=== PATIENT | female | born 1985 | race Caucasian/White ===

== ENCOUNTER 2021-12-15 04:07 | Emergency (ER) | payer SELFPAY ==
[2021-12-15 04:21] VITALS: BP 106/72; PULSE 70; RESP 16; TEMP 97.5; BMI 24.0
== END 2021-12-15 06:54 | disposition home or self-care (01) ==
LOC: JER 04:07
DX: R10.84 Generalized abdominal pain (principal)
CPT/HCPCS: 99283-25

== ENCOUNTER 2021-12-15 12:49 | Emergency (ER) | payer OTHER ==
[2021-12-15 13:01] VITALS: BP 99/56; PULSE 65; RESP 16; TEMP 97.6; BMI 24.9
[2021-12-15] MEDS ORDERED: ACETAMINOPHEN 325 MG TABLET (FP) PO ONE (13:37)
[2021-12-15] MEDS ORDERED: ACETAMINOPHEN 325 MG TABLET (FP) ONE (13:47)
== END 2021-12-15 13:51 | disposition home or self-care (01) ==
LOC: JERFT 12:49
DX: M54.89 Other dorsalgia (principal)
CPT/HCPCS: 99283-25

== ENCOUNTER 2021-12-16 21:38 | Emergency (ER) | payer OTHER ==
[2021-12-16] MEDS ORDERED: SODIUM CHLORIDE 0.9% 500 ML INFUS.BAG IV ONE (21:43)
[2021-12-16 21:53] VITALS: BMI 24.8
[2021-12-16 22:45] LABS: HEMATOCRIT 33.6 % (32.4-45.2); MCHC 35.6 g/dl (32.0-36.0); MEAN CELL VOLUME 89.9 fl (80-96); MEAN PLT VOLUME 7.6 fl (7.5-11.1); PLATELET COUNT 325.2 10^3/uL (134-434); RBC 3.74 10^6/uL (3.60-5.2); RDW 14.2 % (11.6-15.6); WHITE BLOOD COUNT 9.4 10^3/uL (4.0-10.8)
[2021-12-16 22:59] LABS: ALBUMIN 3.9 g/dl (3.4-5.0); BILIRUBIN,TOTAL 0.6 mg/dl (0.2-1); CALCIUM 9.1 mg/dl (8.5-10); CREATININE 0.7 mg/dl (0.55-1.3); TOT PROT 6.6 g/dl (6.4-8.2)
[2021-12-16 23:03] LABS: PLATELET ESTIMATE ADEQUATE
[2021-12-17 06:24] VITALS: BP 92/65; PULSE 65; RESP 14; TEMP 97.8
== END 2021-12-17 06:30 | disposition home or self-care (01) ==
LOC: FER 21:38
DX: E86.0 Dehydration (principal)
CPT/HCPCS: 36415; 80053; 84703; 85025; 99283-25

== ENCOUNTER 2022-01-02 22:52 | Emergency (ER) | payer OTHER ==
[2022-01-02 23:05] VITALS: BP 106/75; PULSE 92; RESP 18; TEMP 97.9; BMI 27.4
[2022-01-03] MEDS ORDERED: KETOROLAC TROMETHAMINE 30 MG/1 ML VIAL IM ONE (00:55)
[2022-01-03] MEDS ORDERED: KETOROLAC TROMETHAMINE 30 MG/1 ML VIAL ONE (01:04)
[2022-01-03] MEDS ORDERED: ACETAMINOPHEN 500 MG TABLET (FP) PO ONE (05:58)
[2022-01-03] MEDS ORDERED: ACETAMINOPHEN 325 MG TABLET (FP) ONE (06:00)
== END 2022-01-03 06:50 | disposition short-term general hospital (02) ==
LOC: JER 22:52
PROC: 3E0233Z Introduction of Anti-inflammatory into Muscle, Percutaneous Approach (ICD-10-PCS; principal; 2022-01-02)
DX: R22.42 Localized swelling, mass and lump, left lower limb (principal)
CPT/HCPCS: 93971-TC; 99285-25

== ENCOUNTER 2022-01-15 19:21 | Inpatient (IN) | payer OTHER ==
[2022-01-15 19:43] VITALS: BMI 26.4
[2022-01-15] MEDS ORDERED: IBUPROFEN 400 MG TABLET (FP) PO PRN (22:17)
[2022-01-15] MEDS ORDERED: guaiFENesin 200 MG/10 ML 10 ML UNIT-DOSE CUPS PO PRN (22:17)
[2022-01-15] MEDS ORDERED: NICOTINE 10 MG CARTRIDGE (INHALER) IH PRN (22:17)
[2022-01-15] MEDS ORDERED: LOPERAMIDE HCL 2 MG CAPSULE PO PRN (22:17)
[2022-01-15] MEDS ORDERED: NALOXONE HCL (KLOXXADO) 8 MG SPRAY NS PRN (22:17)
[2022-01-15] MEDS ORDERED: NALOXONE HCL 0.4 MG/ML VIAL IM PRN (22:17)
[2022-01-15] MEDS ORDERED: P-EPHED 60MG/TRIPROLIDI 2.5MG TABLET PO PRN (22:17)
[2022-01-15] MEDS ORDERED: MAG HYDROX/AL HYDROX/SIMETH 30 ML UNIT-DOSE CUP PO PRN (22:17)
[2022-01-15] MEDS ORDERED: MELATONIN 5 MG TABLETS PO PRN (22:17)
[2022-01-15] MEDS ORDERED: BENZOCAINE/MENTHOL (CHLORASEPTIC ) LOZENGE MM PRN (22:17)
[2022-01-15] MEDS ORDERED: MAGNESIUM CITRATE 300 ML BOTTLE PO PRN (22:17)
[2022-01-15] MEDS ORDERED: MAGNESIUM HYDROX 2400MG/30ML ORAL SUSPENSION 30 ML CUP PO PRN (22:17)
[2022-01-15] MEDS ORDERED: BISMUTH SUBSALICYLATE 524 MG/30 ML PO PRN (22:17)
[2022-01-15] MEDS ORDERED: ACETAMINOPHEN 325 MG TABLET (FP) PO PRN (22:17)
[2022-01-15] MEDS ORDERED: NICOTINE POLACRILEX 2 MG GUM BUC PRN (22:17)
[2022-01-15] MEDS ORDERED: methaDONE HCL 10 MG TABLET (FOR DETOX USE ONLY) PO ONE (22:19)
[2022-01-16] MEDS: hydrOXYzine PAMOATE 25 MG CAPSULE (FP) PO PRN ×4 (05:32→23:12)
[2022-01-16] MEDS: ACETAMINOPHEN 325 MG TABLET (FP) PO PRN ×3 (05:32→23:31)
[2022-01-16] MEDS: METHOCARBAMOL 500 MG TABLET PO PRN ×2 (10:27→18:08)
[2022-01-16] MEDS: PRENATAL VITAMINS W/ FOLIC ACID TABLET (FP) PO SCH (10:27)
[2022-01-16] MEDS: DICYCLOMINE HCL 10 MG CAPSULE PO PRN (10:31)
[2022-01-16] MEDS: ONDANSETRON *ODT* 4 MG TABLET SL PRN ×2 (10:32→18:10)
[2022-01-16] MEDS ORDERED: NICOTINE 10 MG CARTRIDGE (INHALER) IH PRN (13:41)
[2022-01-16] MEDS: GABAPENTIN 300 MG CAPSULE PO SCH ×2 (13:51→22:12)
[2022-01-16] MEDS: IBUPROFEN 600 MG TABLET (FP) PO PRN (13:51)
[2022-01-16] MEDS: cloNIDine HCL 0.1 MG TABLET PO PRN (14:52)
[2022-01-16] MEDS: NICOTINE 7 MG/24 HOURS TOPICAL PATCH TD SCH (15:32)
[2022-01-16 17:29] LABS: HEMATOCRIT 30.6 % (32.4-45.2); HEMOGLOBIN 10.5 GM/dL (10.7-15.3); MCH 30.9 pg (25.7-33.7); MCHC 34.1 g/dl (32.0-36.0); MEAN CELL VOLUME 90.5 fl (80-96); MEAN PLT VOLUME 7.5 fl (7.5-11.1); PLATELET COUNT 341 10^3/uL (134-434); RBC 3.39 M/mm3 (3.60-5.2); RDW 15.1 % (11.6-15.6); WHITE BLOOD COUNT 8.3 K/mm3 (4.0-10.0)
[2022-01-16 17:33] LABS: CALCIUM 8.7 mg/dL (8.5-10.1)
[2022-01-16 17:34] LABS: ALBUMIN 3.4 g/dl (3.4-5.0)
[2022-01-16 17:37] LABS: CREATININE 0.8 mg/dL (0.55-1.3)
[2022-01-16 17:38] LABS: BILIRUBIN,TOTAL 0.2 mg/dL (0.2-1); TOT PROT 6.3 g/dl (6.4-8.2)
[2022-01-16 19:33] LABS: HIV INTERPRETATION NEGATIVE (NEGATIVE)
[2022-01-16] MEDS ORDERED: THIAMINE HCL 100 MG TABLET (FP) PO SCH (22:00)
[2022-01-17] MEDS: cloNIDine HCL 0.1 MG TABLET PO PRN (06:00)
[2022-01-17] MEDS: GABAPENTIN 300 MG CAPSULE PO SCH ×2 (06:00→13:35)
[2022-01-17] MEDS: ONDANSETRON *ODT* 4 MG TABLET SL PRN ×2 (06:01→13:50)
[2022-01-17] MEDS: METHOCARBAMOL 500 MG TABLET PO PRN (06:01)
[2022-01-17] MEDS: hydrOXYzine PAMOATE 25 MG CAPSULE (FP) PO PRN (06:02)
[2022-01-17] MEDS ORDERED: diazePAM 5 MG TABLET PO ONE (07:36)
[2022-01-17 09:51] VITALS: RESP 16; TEMP 97.3
[2022-01-17] MEDS ORDERED: methaDONE HCL 10 MG TABLET (FOR DETOX USE ONLY) PO ONE (10:00)
[2022-01-17] MEDS: PRENATAL VITAMINS W/ FOLIC ACID TABLET (FP) PO SCH (10:29)
[2022-01-17] MEDS: NICOTINE 7 MG/24 HOURS TOPICAL PATCH TD SCH (10:29)
[2022-01-17] MEDS: IBUPROFEN 600 MG TABLET (FP) PO PRN (10:32)
[2022-01-17 13:14] VITALS: BP 104/62; PULSE 66
[2022-01-17] MEDS: ACETAMINOPHEN 325 MG TABLET (FP) PO PRN (13:35)
[2022-01-17] MEDS: DICYCLOMINE HCL 10 MG CAPSULE PO PRN (13:50)
== END 2022-01-17 15:05 | disposition home or self-care (01) | DRG 773 ==
LOC: YASAS 19:21 → Y6N 23:10
PROVIDERS: ADMIT Allergy & Immunology; ATTEND Surgery
PROC: HZ2ZZZZ Detoxification Services for Substance Abuse Treatment (ICD-10-PCS; principal; 2022-01-15)
DX: F11.23 Opioid dependence with withdrawal (principal); F17.210 Nicotine dependence, cigarettes, uncomplicated; F19.282 Other psychoactive substance dependence with psychoactive substance-induced sleep disorder; F19.280 Other psychoactive substance dependence with psychoactive substance-induced anxiety disorder; F19.24 Other psychoactive substance dependence with psychoactive substance-induced mood disorder; F31.9 Bipolar disorder, unspecified; F43.10 Post-traumatic stress disorder, unspecified; F90.9 Attention-deficit hyperactivity disorder, unspecified type; Z62.810 Personal history of physical and sexual abuse in childhood; Z91.410 Personal history of adult physical and sexual abuse; Z56.0 Unemployment, unspecified; Z59.00 Homelessness unspecified
CPT/HCPCS: 36415; 80053; 81025; 85027; 86780; 87389; Q0162

== ENCOUNTER 2022-01-26 21:14 | Inpatient (IN) | payer OTHER ==
[2022-01-26 22:57] VITALS: BMI 28.8
[2022-01-26] MEDS ORDERED: MAGNESIUM CITRATE 300 ML BOTTLE PO PRN (23:03)
[2022-01-26] MEDS ORDERED: P-EPHED 60MG/TRIPROLIDI 2.5MG TABLET PO PRN (23:03)
[2022-01-26] MEDS ORDERED: DICYCLOMINE HCL 10 MG CAPSULE PO PRN (23:03)
[2022-01-26] MEDS ORDERED: ACETAMINOPHEN 325 MG TABLET (FP) PO PRN (23:03)
[2022-01-26] MEDS ORDERED: BISMUTH SUBSALICYLATE 524 MG/30 ML PO PRN (23:03)
[2022-01-26] MEDS ORDERED: IBUPROFEN 600 MG TABLET (FP) PO PRN (23:03)
[2022-01-26] MEDS ORDERED: guaiFENesin 200 MG/10 ML 10 ML UNIT-DOSE CUPS PO PRN (23:03)
[2022-01-26] MEDS ORDERED: NALOXONE HCL (KLOXXADO) 8 MG SPRAY NS PRN (23:03)
[2022-01-26] MEDS ORDERED: IBUPROFEN 400 MG TABLET (FP) PO PRN (23:03)
[2022-01-26] MEDS ORDERED: MAGNESIUM HYDROX 2400MG/30ML ORAL SUSPENSION 30 ML CUP PO PRN (23:03)
[2022-01-26] MEDS ORDERED: NICOTINE POLACRILEX 2 MG GUM BUC PRN (23:03)
[2022-01-26] MEDS ORDERED: BENZOCAINE/MENTHOL (CHLORASEPTIC ) LOZENGE MM PRN (23:03)
[2022-01-26] MEDS: ONDANSETRON *ODT* 4 MG TABLET SL PRN (23:55)
[2022-01-27] MEDS: LOPERAMIDE HCL 2 MG CAPSULE PO PRN ×2 (07:38→15:18)
[2022-01-27] MEDS: METHOCARBAMOL 500 MG TABLET PO PRN ×2 (08:50→15:18)
[2022-01-27] MEDS: MAG HYDROX/AL HYDROX/SIMETH 30 ML UNIT-DOSE CUP PO PRN ×2 (08:50→22:12)
[2022-01-27] MEDS: NICOTINE 14 MG/24 HOURS TOPICAL PATCH TD SCH (10:06)
[2022-01-27] MEDS: methaDONE 40 MG, methaDONE 10 MG PO SCH (10:06)
[2022-01-27] MEDS: PRENATAL VITAMINS W/ FOLIC ACID TABLET (FP) PO SCH (10:06)
[2022-01-27] MEDS: GABAPENTIN 300 MG CAPSULE PO SCH ×2 (13:16→22:11)
[2022-01-27] MEDS: hydrOXYzine PAMOATE 25 MG CAPSULE (FP) PO PRN (15:18)
[2022-01-27] MEDS: ONDANSETRON *ODT* 4 MG TABLET SL PRN (17:57)
[2022-01-27] MEDS: ACETAMINOPHEN 325 MG TABLET (FP) PO PRN (17:57)
[2022-01-27 18:27] VITALS: RESP 18
[2022-01-27] MEDS ORDERED: MELATONIN 5 MG TABLETS PO SCH (22:00)
[2022-01-27] MEDS ORDERED: THIAMINE HCL 100 MG TABLET (FP) PO SCH (22:00)
[2022-01-28] MEDS: hydrOXYzine PAMOATE 25 MG CAPSULE (FP) PO PRN ×2 (01:06→13:05)
[2022-01-28] MEDS: ACETAMINOPHEN 325 MG TABLET (FP) PO PRN ×2 (01:06→10:30)
[2022-01-28] MEDS: GABAPENTIN 300 MG CAPSULE PO SCH ×2 (06:04→13:05)
[2022-01-28] MEDS: methaDONE 40 MG, methaDONE 10 MG PO SCH (06:04)
[2022-01-28 09:11] VITALS: TEMP 97.5
[2022-01-28 10:30] LABS: HEMATOCRIT 36.3 % (32.4-45.2); MCH 29.5 pg (25.7-33.7); MCHC 33.1 g/dl (32.0-36.0); MEAN CELL VOLUME 89.1 fl (80-96); MEAN PLT VOLUME 7.7 fl (7.5-11.1); PLATELET COUNT 288 10^3/uL (134-434); RBC 4.08 M/mm3 (3.60-5.2); RDW 14.3 % (11.6-15.6); WHITE BLOOD COUNT 6.8 K/mm3 (4.0-10.0)
[2022-01-28] MEDS: PRENATAL VITAMINS W/ FOLIC ACID TABLET (FP) PO SCH (10:30)
[2022-01-28] MEDS: NICOTINE 14 MG/24 HOURS TOPICAL PATCH TD SCH (10:30)
[2022-01-28] MEDS: MAG HYDROX/AL HYDROX/SIMETH 30 ML UNIT-DOSE CUP PO PRN (10:31)
[2022-01-28 10:42] LABS: ALBUMIN 3.8 g/dl (3.4-5.0); BLOOD UREA NITROGEN 17.8 mg/dL (7-18); CALCIUM 9.5 mg/dL (8.5-10.1)
[2022-01-28 10:45] LABS: CREATININE 0.9 mg/dL (0.55-1.3)
[2022-01-28 10:47] LABS: BILIRUBIN,TOTAL 0.3 mg/dL (0.2-1); TOT PROT 6.9 g/dl (6.4-8.2)
[2022-01-28 12:47] VITALS: BP 107/61; PULSE 54
[2022-01-28] MEDS: METHOCARBAMOL 500 MG TABLET PO PRN (13:04)
[2022-01-28 13:47] LABS: HIV INTERPRETATION NEGATIVE (NEGATIVE)
== END 2022-01-28 13:35 | disposition other institution (70) | DRG 773 ==
LOC: YASAS 21:14 → Y3N 23:20
PROVIDERS: ADMIT Allergy & Immunology; ATTEND Surgery
PROC: HZ2ZZZZ Detoxification Services for Substance Abuse Treatment (ICD-10-PCS; principal; 2022-01-26)
DX: F11.23 Opioid dependence with withdrawal (principal); F16.20 Hallucinogen dependence, uncomplicated; F13.10 Sedative, hypnotic or anxiolytic abuse, uncomplicated; F12.20 Cannabis dependence, uncomplicated; F17.210 Nicotine dependence, cigarettes, uncomplicated; F19.24 Other psychoactive substance dependence with psychoactive substance-induced mood disorder; F41.9 Anxiety disorder, unspecified; Z62.810 Personal history of physical and sexual abuse in childhood; Z91.410 Personal history of adult physical and sexual abuse; Z86.59 Personal history of other mental and behavioral disorders; Z28.310 Unvaccinated for COVID-19; Z28.9 Immunization not carried out for unspecified reason; Z56.0 Unemployment, unspecified; Z59.00 Homelessness unspecified
CPT/HCPCS: 36415; 80053; 84703; 85027; 86780; 87389; 87811; C9803-CS; Q0162; U0003; U0005

== ENCOUNTER 2022-01-28 13:48 | Inpatient (IN) | payer OTHER ==
[2022-01-28] MEDS ORDERED: P-EPHED 60MG/TRIPROLIDI 2.5MG TABLET PO PRN (13:49)
[2022-01-28] MEDS ORDERED: guaiFENesin 200 MG/10 ML 10 ML UNIT-DOSE CUPS PO PRN (13:49)
[2022-01-28] MEDS ORDERED: MAGNESIUM CITRATE 300 ML BOTTLE PO PRN (13:49)
[2022-01-28] MEDS ORDERED: MAGNESIUM HYDROX 2400MG/30ML ORAL SUSPENSION 30 ML CUP PO PRN (13:49)
[2022-01-28] MEDS ORDERED: LOPERAMIDE HCL 2 MG CAPSULE PO PRN (13:49)
[2022-01-28] MEDS ORDERED: BENZOCAINE/MENTHOL (CHLORASEPTIC ) LOZENGE MM PRN (13:49)
[2022-01-28] MEDS: GABAPENTIN 300 MG CAPSULE PO SCH ×2 (16:03→21:05)
[2022-01-28] MEDS: NICOTINE 10 MG CARTRIDGE (INHALER) IH SCH (17:27)
[2022-01-28] MEDS: THIAMINE HCL 100 MG TABLET (FP) PO SCH (21:05)
[2022-01-28] MEDS: MELATONIN 5 MG TABLETS PO SCH (21:05)
[2022-01-28] MEDS: hydrOXYzine PAMOATE 25 MG CAPSULE (FP) PO PRN (21:06)
[2022-01-29] MEDS: ACETAMINOPHEN 325 MG TABLET (FP) PO PRN ×2 (00:57→19:41)
[2022-01-29] MEDS: GABAPENTIN 300 MG CAPSULE PO SCH ×3 (06:42→21:20)
[2022-01-29] MEDS: methaDONE 40 MG, methaDONE 10 MG PO SCH (06:42)
[2022-01-29] MEDS: MAG HYDROX/AL HYDROX/SIMETH 30 ML UNIT-DOSE CUP PO PRN ×2 (06:42→21:24)
[2022-01-29] MEDS ORDERED: ONDANSETRON *ODT* 4 MG TABLET SL PRN ×2 (10:36→10:39)
[2022-01-29] MEDS ORDERED: LIDOCAINE VISCOUS 2% ORAL/TOP 100 ML BOTTLE MM PRN (10:41)
[2022-01-29] MEDS: NICOTINE 14 MG/24 HOURS TOPICAL PATCH TD SCH (10:56)
[2022-01-29] MEDS: PRENATAL VITAMINS W/ FOLIC ACID TABLET (FP) PO SCH (10:56)
[2022-01-29] MEDS: NICOTINE 10 MG CARTRIDGE (INHALER) IH SCH (10:56)
[2022-01-29] MEDS ORDERED: LIDOCAINE VISCOUS 2% ORAL/TOP 15 ML UNIT-DOSE CUP MM PRN (11:06)
[2022-01-29] MEDS: AMOXICILLIN 500 MG CAPSULE (FP) PO SCH ×2 (11:12→21:20)
[2022-01-29] MEDS: cloNIDine HCL 0.1 MG TABLET PO PRN ×2 (11:12→19:41)
[2022-01-29] MEDS: IBUPROFEN 400 MG TABLET (FP) PO PRN (13:02)
[2022-01-29] MEDS: hydrOXYzine PAMOATE 25 MG CAPSULE (FP) PO PRN ×2 (15:53→21:20)
[2022-01-29] MEDS: THIAMINE HCL 100 MG TABLET (FP) PO SCH (21:20)
[2022-01-29] MEDS: MELATONIN 5 MG TABLETS PO SCH (21:20)
[2022-01-30] MEDS: methaDONE 40 MG, methaDONE 10 MG PO SCH (06:25)
[2022-01-30] MEDS: GABAPENTIN 300 MG CAPSULE PO SCH ×3 (06:25→21:08)
[2022-01-30] MEDS: PRENATAL VITAMINS W/ FOLIC ACID TABLET (FP) PO SCH (10:35)
[2022-01-30] MEDS: NICOTINE 10 MG CARTRIDGE (INHALER) IH SCH (10:35)
[2022-01-30] MEDS: NICOTINE 14 MG/24 HOURS TOPICAL PATCH TD SCH (10:35)
[2022-01-30] MEDS: AMOXICILLIN 500 MG CAPSULE (FP) PO SCH ×2 (10:36→21:08)
[2022-01-30] MEDS: hydrOXYzine PAMOATE 25 MG CAPSULE (FP) PO PRN (10:36)
[2022-01-30] MEDS: IBUPROFEN 400 MG TABLET (FP) PO PRN (13:18)
[2022-01-30] MEDS: cloNIDine HCL 0.1 MG TABLET PO PRN (21:08)
[2022-01-30] MEDS: THIAMINE HCL 100 MG TABLET (FP) PO SCH (21:08)
[2022-01-30] MEDS: MELATONIN 5 MG TABLETS PO SCH (21:09)
[2022-01-31] MEDS: GABAPENTIN 300 MG CAPSULE PO SCH ×3 (06:41→21:13)
[2022-01-31] MEDS: methaDONE 40 MG, methaDONE 10 MG PO SCH (06:41)
[2022-01-31] MEDS: AMOXICILLIN 500 MG CAPSULE (FP) PO SCH ×2 (10:05→21:13)
[2022-01-31] MEDS: NICOTINE 10 MG CARTRIDGE (INHALER) IH SCH (10:06)
[2022-01-31] MEDS: NICOTINE 14 MG/24 HOURS TOPICAL PATCH TD SCH (10:06)
[2022-01-31] MEDS: hydrOXYzine PAMOATE 25 MG CAPSULE (FP) PO PRN ×2 (10:07→20:03)
[2022-01-31] MEDS: PRENATAL VITAMINS W/ FOLIC ACID TABLET (FP) PO SCH (10:09)
[2022-01-31] MEDS ORDERED: SODIUM POLYSTYRENE SULFONATE 15 GM/60 ML BOTTLE PO ONE (14:30)
[2022-01-31] MEDS: IBUPROFEN 400 MG TABLET (FP) PO PRN (20:03)
[2022-01-31] MEDS: THIAMINE HCL 100 MG TABLET (FP) PO SCH (21:13)
[2022-01-31] MEDS: MELATONIN 5 MG TABLETS PO SCH (21:13)
[2022-02-01] MEDS: GABAPENTIN 300 MG CAPSULE PO SCH ×3 (06:30→21:53)
[2022-02-01] MEDS: methaDONE 40 MG, methaDONE 10 MG PO SCH (06:30)
[2022-02-01] MEDS: AMOXICILLIN 500 MG CAPSULE (FP) PO SCH ×2 (10:52→21:53)
[2022-02-01] MEDS: PRENATAL VITAMINS W/ FOLIC ACID TABLET (FP) PO SCH (10:52)
[2022-02-01] MEDS: hydrOXYzine PAMOATE 25 MG CAPSULE (FP) PO PRN (10:54)
[2022-02-01] MEDS: cloNIDine HCL 0.1 MG TABLET PO PRN (10:56)
[2022-02-01] MEDS: NICOTINE 10 MG CARTRIDGE (INHALER) IH SCH (10:57)
[2022-02-01] MEDS: THIAMINE HCL 100 MG TABLET (FP) PO SCH (21:53)
[2022-02-01] MEDS: MELATONIN 5 MG TABLETS PO SCH (21:53)
[2022-02-01] MEDS: busPIRone HCL 10 MG TABLET (FP) PO SCH (21:54)
[2022-02-02] MEDS: busPIRone HCL 10 MG TABLET (FP) PO SCH ×3 (07:05→21:59)
[2022-02-02] MEDS: methaDONE 40 MG, methaDONE 10 MG PO SCH (07:05)
[2022-02-02] MEDS: GABAPENTIN 300 MG CAPSULE PO SCH ×3 (07:05→21:59)
[2022-02-02] MEDS: PRENATAL VITAMINS W/ FOLIC ACID TABLET (FP) PO SCH (10:32)
[2022-02-02] MEDS: AMOXICILLIN 500 MG CAPSULE (FP) PO SCH ×2 (10:32→21:59)
[2022-02-02] MEDS: NICOTINE 10 MG CARTRIDGE (INHALER) IH SCH (10:33)
[2022-02-02] MEDS: IBUPROFEN 400 MG TABLET (FP) PO PRN (10:34)
[2022-02-02] MEDS: MELATONIN 5 MG TABLETS PO SCH (21:59)
[2022-02-02] MEDS: hydrOXYzine PAMOATE 25 MG CAPSULE (FP) PO PRN (21:59)
[2022-02-02] MEDS: THIAMINE HCL 100 MG TABLET (FP) PO SCH (21:59)
[2022-02-03] MEDS: busPIRone HCL 10 MG TABLET (FP) PO SCH ×3 (06:58→22:36)
[2022-02-03] MEDS: GABAPENTIN 300 MG CAPSULE PO SCH ×3 (06:58→22:14)
[2022-02-03] MEDS: methaDONE 40 MG, methaDONE 10 MG PO SCH (06:58)
[2022-02-03] MEDS: hydrOXYzine PAMOATE 25 MG CAPSULE (FP) PO PRN ×2 (10:37→22:15)
[2022-02-03] MEDS: NICOTINE 10 MG CARTRIDGE (INHALER) IH SCH (10:37)
[2022-02-03] MEDS: PRENATAL VITAMINS W/ FOLIC ACID TABLET (FP) PO SCH (10:37)
[2022-02-03] MEDS: AMOXICILLIN 500 MG CAPSULE (FP) PO SCH ×2 (10:37→22:14)
[2022-02-03] MEDS: IBUPROFEN 400 MG TABLET (FP) PO PRN (16:02)
[2022-02-03] MEDS: MELATONIN 5 MG TABLETS PO SCH (22:14)
[2022-02-03] MEDS: THIAMINE HCL 100 MG TABLET (FP) PO SCH (22:14)
[2022-02-04] MEDS: methaDONE 40 MG, methaDONE 10 MG PO SCH (06:05)
[2022-02-04] MEDS: busPIRone HCL 10 MG TABLET (FP) PO SCH ×3 (06:05→21:16)
[2022-02-04] MEDS: GABAPENTIN 300 MG CAPSULE PO SCH ×3 (06:08→21:16)
[2022-02-04] MEDS: AMOXICILLIN 500 MG CAPSULE (FP) PO SCH ×2 (10:44→21:16)
[2022-02-04] MEDS: PRENATAL VITAMINS W/ FOLIC ACID TABLET (FP) PO SCH (10:44)
[2022-02-04] MEDS: IBUPROFEN 400 MG TABLET (FP) PO PRN (10:45)
[2022-02-04] MEDS: hydrOXYzine PAMOATE 25 MG CAPSULE (FP) PO PRN (10:45)
[2022-02-04] MEDS: NICOTINE 10 MG CARTRIDGE (INHALER) IH SCH (10:46)
[2022-02-04] MEDS: ACETAMINOPHEN 325 MG TABLET (FP) PO PRN (16:34)
[2022-02-04] MEDS: MELATONIN 5 MG TABLETS PO SCH (21:16)
[2022-02-04] MEDS: THIAMINE HCL 100 MG TABLET (FP) PO SCH (21:16)
[2022-02-05] MEDS: busPIRone HCL 10 MG TABLET (FP) PO SCH ×3 (06:16→21:11)
[2022-02-05] MEDS: methaDONE 40 MG, methaDONE 10 MG PO SCH (06:16)
[2022-02-05] MEDS: GABAPENTIN 300 MG CAPSULE PO SCH ×3 (06:16→21:11)
[2022-02-05] MEDS: PRENATAL VITAMINS W/ FOLIC ACID TABLET (FP) PO SCH (10:46)
[2022-02-05] MEDS: AMOXICILLIN 500 MG CAPSULE (FP) PO SCH (10:46)
[2022-02-05] MEDS: NICOTINE 10 MG CARTRIDGE (INHALER) IH SCH (10:46)
[2022-02-05] MEDS: IBUPROFEN 400 MG TABLET (FP) PO PRN ×2 (10:46→21:13)
[2022-02-05] MEDS: hydrOXYzine PAMOATE 25 MG CAPSULE (FP) PO PRN (10:46)
[2022-02-05] MEDS: ACETAMINOPHEN 325 MG TABLET (FP) PO PRN (14:23)
[2022-02-05] MEDS: THIAMINE HCL 100 MG TABLET (FP) PO SCH (21:11)
[2022-02-05] MEDS: MELATONIN 5 MG TABLETS PO SCH (21:11)
[2022-02-06] MEDS: GABAPENTIN 300 MG CAPSULE PO SCH ×3 (06:11→21:09)
[2022-02-06] MEDS: busPIRone HCL 10 MG TABLET (FP) PO SCH ×3 (06:11→21:09)
[2022-02-06] MEDS: methaDONE 40 MG, methaDONE 10 MG PO SCH (06:11)
[2022-02-06] MEDS: hydrOXYzine PAMOATE 25 MG CAPSULE (FP) PO PRN (09:46)
[2022-02-06] MEDS: NICOTINE 10 MG CARTRIDGE (INHALER) IH SCH (09:46)
[2022-02-06] MEDS: PRENATAL VITAMINS W/ FOLIC ACID TABLET (FP) PO SCH (09:46)
[2022-02-06] MEDS: IBUPROFEN 400 MG TABLET (FP) PO PRN ×2 (09:47→21:10)
[2022-02-06] MEDS ORDERED: NICOTINE 10 MG CARTRIDGE (INHALER) IH PRN (14:53)
[2022-02-06 17:21] LABS: ALBUMIN 3.7 g/dl (3.4-5.0); BLOOD UREA NITROGEN 22.2 mg/dL (7-18); CALCIUM 9.6 mg/dL (8.5-10.1)
[2022-02-06 17:24] LABS: CREATININE 0.8 mg/dL (0.55-1.3)
[2022-02-06 17:25] LABS: TOT PROT 6.7 g/dl (6.4-8.2)
[2022-02-06 17:26] LABS: BILIRUBIN,TOTAL 0.3 mg/dL (0.2-1)
[2022-02-06] MEDS: THIAMINE HCL 100 MG TABLET (FP) PO SCH (21:09)
[2022-02-06] MEDS: MELATONIN 5 MG TABLETS PO SCH (21:09)
[2022-02-07] MEDS: methaDONE 40 MG, methaDONE 10 MG PO SCH (06:01)
[2022-02-07] MEDS: GABAPENTIN 300 MG CAPSULE PO SCH ×3 (06:01→21:07)
[2022-02-07] MEDS: busPIRone HCL 10 MG TABLET (FP) PO SCH ×3 (06:01→21:07)
[2022-02-07] MEDS: PRENATAL VITAMINS W/ FOLIC ACID TABLET (FP) PO SCH (09:52)
[2022-02-07] MEDS: IBUPROFEN 400 MG TABLET (FP) PO PRN (09:54)
[2022-02-07] MEDS ORDERED: SODIUM POLYSTYRENE SULFONATE 15 GM/60 ML BOTTLE PO ONE (11:15)
[2022-02-07] MEDS: cloNIDine HCL 0.1 MG TABLET PO PRN (11:17)
[2022-02-07] MEDS: AMOXICILLIN 500 MG CAPSULE (FP) PO SCH ×2 (11:29→21:07)
[2022-02-07] MEDS: THIAMINE HCL 100 MG TABLET (FP) PO SCH (21:07)
[2022-02-07] MEDS: MELATONIN 5 MG TABLETS PO SCH (21:08)
[2022-02-08] MEDS: ACETAMINOPHEN 325 MG TABLET (FP) PO PRN ×2 (01:26→22:02)
[2022-02-08] MEDS: methaDONE 40 MG, methaDONE 10 MG PO SCH (06:52)
[2022-02-08] MEDS: GABAPENTIN 300 MG CAPSULE PO SCH ×3 (06:53→21:23)
[2022-02-08] MEDS: busPIRone HCL 10 MG TABLET (FP) PO SCH ×3 (06:53→21:23)
[2022-02-08] MEDS: AMOXICILLIN 500 MG CAPSULE (FP) PO SCH ×2 (10:44→21:23)
[2022-02-08] MEDS: PRENATAL VITAMINS W/ FOLIC ACID TABLET (FP) PO SCH (10:44)
[2022-02-08] MEDS: IBUPROFEN 400 MG TABLET (FP) PO PRN (10:46)
[2022-02-08] MEDS: hydrOXYzine PAMOATE 25 MG CAPSULE (FP) PO PRN (10:47)
[2022-02-08] MEDS: cloNIDine HCL 0.1 MG TABLET PO PRN (14:54)
[2022-02-08] MEDS: MELATONIN 5 MG TABLETS PO SCH (21:23)
[2022-02-08] MEDS: THIAMINE HCL 100 MG TABLET (FP) PO SCH (21:23)
[2022-02-09] MEDS: methaDONE 40 MG, methaDONE 10 MG PO SCH (06:52)
[2022-02-09] MEDS: GABAPENTIN 300 MG CAPSULE PO SCH ×3 (06:53→21:59)
[2022-02-09] MEDS: busPIRone HCL 10 MG TABLET (FP) PO SCH ×3 (06:53→21:59)
[2022-02-09] MEDS: cloNIDine HCL 0.1 MG TABLET PO PRN (07:37)
[2022-02-09] MEDS: PRENATAL VITAMINS W/ FOLIC ACID TABLET (FP) PO SCH (10:26)
[2022-02-09] MEDS: IBUPROFEN 400 MG TABLET (FP) PO PRN ×2 (10:27→22:00)
[2022-02-09] MEDS: hydrOXYzine PAMOATE 25 MG CAPSULE (FP) PO PRN (10:27)
[2022-02-09] MEDS: AMOXICILLIN 500 MG CAPSULE (FP) PO SCH ×2 (10:29→22:00)
[2022-02-09] MEDS: ACETAMINOPHEN 325 MG TABLET (FP) PO PRN (13:26)
[2022-02-09] MEDS: THIAMINE HCL 100 MG TABLET (FP) PO SCH (21:59)
[2022-02-09] MEDS: MELATONIN 5 MG TABLETS PO SCH (21:59)
[2022-02-10] MEDS: busPIRone HCL 10 MG TABLET (FP) PO SCH ×3 (06:10→21:54)
[2022-02-10] MEDS: GABAPENTIN 300 MG CAPSULE PO SCH ×3 (06:10→21:54)
[2022-02-10] MEDS: methaDONE 40 MG, methaDONE 10 MG PO SCH (06:10)
[2022-02-10] MEDS: PRENATAL VITAMINS W/ FOLIC ACID TABLET (FP) PO SCH (10:35)
[2022-02-10] MEDS: hydrOXYzine PAMOATE 25 MG CAPSULE (FP) PO PRN ×2 (10:36→21:54)
[2022-02-10] MEDS: ACETAMINOPHEN 325 MG TABLET (FP) PO PRN (10:36)
[2022-02-10] MEDS: AMOXICILLIN 500 MG CAPSULE (FP) PO SCH ×2 (10:37→21:54)
[2022-02-10] MEDS: MAG HYDROX/AL HYDROX/SIMETH 30 ML UNIT-DOSE CUP PO PRN (10:37)
[2022-02-10] MEDS: IBUPROFEN 400 MG TABLET (FP) PO PRN (13:11)
[2022-02-10] MEDS: MELATONIN 5 MG TABLETS PO SCH (21:53)
[2022-02-10] MEDS: THIAMINE HCL 100 MG TABLET (FP) PO SCH (21:54)
[2022-02-11] MEDS: methaDONE 40 MG, methaDONE 10 MG PO SCH (06:33)
[2022-02-11] MEDS: GABAPENTIN 300 MG CAPSULE PO SCH ×3 (06:33→21:20)
[2022-02-11] MEDS: busPIRone HCL 10 MG TABLET (FP) PO SCH ×3 (06:33→21:20)
[2022-02-11] MEDS: AMOXICILLIN 500 MG CAPSULE (FP) PO SCH ×2 (10:39→21:20)
[2022-02-11] MEDS: PRENATAL VITAMINS W/ FOLIC ACID TABLET (FP) PO SCH (10:39)
[2022-02-11] MEDS: IBUPROFEN 400 MG TABLET (FP) PO PRN (10:40)
[2022-02-11] MEDS: hydrOXYzine PAMOATE 25 MG CAPSULE (FP) PO PRN ×2 (10:41→21:20)
[2022-02-11] MEDS: cloNIDine HCL 0.1 MG TABLET PO PRN (13:00)
[2022-02-11] MEDS: NICOTINE POLACRILEX 2 MG GUM BUC PRN (14:52)
[2022-02-11] MEDS: ACETAMINOPHEN 325 MG TABLET (FP) PO PRN (21:19)
[2022-02-11] MEDS: MELATONIN 5 MG TABLETS PO SCH (21:20)
[2022-02-11] MEDS: THIAMINE HCL 100 MG TABLET (FP) PO SCH (21:20)
[2022-02-12] MEDS: IBUPROFEN 400 MG TABLET (FP) PO PRN ×2 (03:15→23:21)
[2022-02-12] MEDS: busPIRone HCL 10 MG TABLET (FP) PO SCH ×3 (06:26→21:24)
[2022-02-12] MEDS: methaDONE 40 MG, methaDONE 10 MG PO SCH (06:26)
[2022-02-12] MEDS: GABAPENTIN 300 MG CAPSULE PO SCH ×3 (06:26→21:24)
[2022-02-12] MEDS: AMOXICILLIN 500 MG CAPSULE (FP) PO SCH ×2 (10:36→21:24)
[2022-02-12] MEDS: PRENATAL VITAMINS W/ FOLIC ACID TABLET (FP) PO SCH (10:37)
[2022-02-12] MEDS: ACETAMINOPHEN 325 MG TABLET (FP) PO PRN (10:37)
[2022-02-12] MEDS: hydrOXYzine PAMOATE 25 MG CAPSULE (FP) PO PRN ×2 (10:38→21:25)
[2022-02-12] MEDS: NICOTINE POLACRILEX 2 MG GUM BUC PRN ×3 (11:00→18:16)
[2022-02-12] MEDS: THIAMINE HCL 100 MG TABLET (FP) PO SCH (21:24)
[2022-02-12] MEDS: MELATONIN 5 MG TABLETS PO SCH (21:24)
[2022-02-13] MEDS: ACETAMINOPHEN 325 MG TABLET (FP) PO PRN (03:08)
[2022-02-13] MEDS: NICOTINE POLACRILEX 2 MG GUM BUC PRN ×2 (03:09→09:05)
[2022-02-13] MEDS: methaDONE 40 MG, methaDONE 10 MG PO SCH (06:54)
[2022-02-13] MEDS: busPIRone HCL 10 MG TABLET (FP) PO SCH ×3 (06:55→21:28)
[2022-02-13] MEDS: GABAPENTIN 300 MG CAPSULE PO SCH ×3 (06:55→21:28)
[2022-02-13] MEDS: AMOXICILLIN 500 MG CAPSULE (FP) PO SCH ×2 (10:29→21:28)
[2022-02-13] MEDS: PRENATAL VITAMINS W/ FOLIC ACID TABLET (FP) PO SCH (10:29)
[2022-02-13] MEDS: hydrOXYzine PAMOATE 25 MG CAPSULE (FP) PO PRN ×2 (10:30→21:31)
[2022-02-13] MEDS: IBUPROFEN 400 MG TABLET (FP) PO PRN ×2 (10:31→21:30)
[2022-02-13] MEDS: MELATONIN 5 MG TABLETS PO SCH (21:28)
[2022-02-13] MEDS: THIAMINE HCL 100 MG TABLET (FP) PO SCH (21:28)
[2022-02-14] MEDS: busPIRone HCL 10 MG TABLET (FP) PO SCH ×3 (05:53→21:50)
[2022-02-14] MEDS: methaDONE 40 MG, methaDONE 10 MG PO SCH (05:53)
[2022-02-14] MEDS: GABAPENTIN 300 MG CAPSULE PO SCH ×3 (05:53→21:50)
[2022-02-14 07:24] VITALS: RESP 16
[2022-02-14] MEDS: AMOXICILLIN 500 MG CAPSULE (FP) PO SCH (09:53)
[2022-02-14] MEDS: cloNIDine HCL 0.1 MG TABLET PO PRN (09:53)
[2022-02-14] MEDS: PRENATAL VITAMINS W/ FOLIC ACID TABLET (FP) PO SCH (09:53)
[2022-02-14] MEDS: ACETAMINOPHEN 325 MG TABLET (FP) PO PRN (13:47)
[2022-02-14] MEDS: hydrOXYzine PAMOATE 25 MG CAPSULE (FP) PO PRN ×2 (15:57→21:50)
[2022-02-14] MEDS: MELATONIN 5 MG TABLETS PO SCH (21:50)
[2022-02-14] MEDS: THIAMINE HCL 100 MG TABLET (FP) PO SCH (21:50)
[2022-02-14] MEDS: IBUPROFEN 400 MG TABLET (FP) PO PRN (23:07)
[2022-02-15] MEDS: GABAPENTIN 300 MG CAPSULE PO SCH (06:11)
[2022-02-15] MEDS: busPIRone HCL 10 MG TABLET (FP) PO SCH (06:11)
[2022-02-15] MEDS: hydrOXYzine PAMOATE 25 MG CAPSULE (FP) PO PRN (06:11)
[2022-02-15] MEDS: methaDONE 40 MG, methaDONE 10 MG PO SCH (06:11)
[2022-02-15 07:22] VITALS: TEMP 97.8
[2022-02-15 07:39] VITALS: BP 132/69; PULSE 88
[2022-02-15] MEDS: cloNIDine HCL 0.1 MG TABLET PO PRN (07:39)
[2022-02-15] MEDS: PRENATAL VITAMINS W/ FOLIC ACID TABLET (FP) PO SCH (08:30)
== END 2022-02-15 09:40 | disposition home or self-care (01) | DRG 772 ==
LOC: YASAS 13:48 → Y5N 13:49
PROVIDERS: ADMIT Allergy & Immunology; ATTEND Psychiatry & Neurology Pain Medicine
PROC: HZ42ZZZ Group Counseling for Substance Abuse Treatment, Cognitive-Behavioral (ICD-10-PCS; principal; 2022-01-28)
DX: F11.20 Opioid dependence, uncomplicated (principal); F13.20 Sedative, hypnotic or anxiolytic dependence, uncomplicated; F16.20 Hallucinogen dependence, uncomplicated; F17.210 Nicotine dependence, cigarettes, uncomplicated; F41.9 Anxiety disorder, unspecified; E87.5 Hyperkalemia; K04.7 Periapical abscess without sinus
CPT/HCPCS: 36415; 80053; 84132; 93005; 93010; 99283-25; Q0162